=== PATIENT | male | born 1995 | race Caucasian/White ===

== ENCOUNTER 2016-09-19 18:02 | Emergency (ER) | payer MEDICAID, OTHER ==
[2016-09-19] MEDS ORDERED: ONDANSETRON 4 MG TAB.RAPDIS PO ONE (18:35)
--- NOTE | 2016-09-19 18:35 | ER Document Report ---
ED Medical Screen (RME) - General Stated Complaint: POSSIBLE SEIZURE/VOMITING Mode of Arrival: Wheelchair Information source: Patient Notes: Patient reports having a seizure around 3:30 today. Patient does have a history of previous seizure when he was 5 years old. Patient does not take any antiepileptic medications. Patient complains of nausea and vomiting. Seizure was witnessed by family member. Patient bit his tongue. hx: Seizures I have greeted and performed a rapid initial assessment of this patient. A comprehensive ED assessment and evaluation of the patient, analysis of test results and completion of the medical decision making process will be conducted by additional ED providers. TRAVEL OUTSIDE OF THE [place] IN LAST 30 DAYS: No - Related Data Allergies/Adverse Reactions: aripiprazole [From [employer]] Allergy (Intermediate, Verified 09/19/16 18:31) tounge welling, choking Past Medical History - Past Medical History Cardiac Medical History: Denies: Hx Coronary Artery Disease, Hx Heart Attack, Hx Hypertension Pulmonary Medical History: Reports: Hx Bronchitis Denies: Hx COPD, Hx Pneumonia Neurological Medical History: Reports: Hx Seizures. Denies: Hx Cerebrovascular Accident GI Medical History: Reports: Hx Gastroesophageal Reflux Disease Musculoskeltal Medical History: Denies Hx Arthritis Psychiatric Medical History: Reports: Hx Attention Deficit Hyperactivity Disorder, Hx Bipolar Disorder Past Surgical History: Reports: Hx Myringotomy, Hx Tonsillectomy - Immunizations Immunizations up to date: Yes Hx Diphtheria, Pertussis, Tetanus Vaccination: Yes Physical Exam - Vital signs Vitals: Temp Pulse Resp BP Pulse Ox 99.6 F 116 H 17 132/85 H 83 L 09/19/16 18:06 09/19/16 18:06 09/19/16 18:06 09/19/16 18:06 09/19/16 18:06 Interpretation: No: Hypoxic - Neurological [place] Coma Scale Eye Opening: Spontaneous [place] Coma Scale Verbal: Oriented Doc Coma Scale Motor: Obeys Commands [place] Coma Scale Total: 15 Course - Vital Signs Vital signs: Temp Pulse Resp BP Pulse Ox 99.6 F 116 H 17 132/85 H 83 L 09/19/16 18:06 09/19/16 18:06 09/19/16 18:06 09/19/16 18:06 09/19/16 18:06
[2016-09-19 19:14] LABS: HEMOGLOBIN 16.7 g/dL (13.5-17.0); HGB HCT DIFFERENCE 3.1; MEAN CORPUSCULAR HEMOGLOBIN 29.9 pg (27.0-33.4); MEAN CORPUSCULAR HGB CONC 35.4 g/dL (32.0-36.0); MEAN CORPUSCULAR VOLUME 84 fl (80-97); RED BLOOD COUNT 5.57 10^6/uL (4.35-5.55); RED CELL DISTRIBUTION WIDTH 12.9 % (11.5-14.0); WHITE BLOOD COUNT 22.3 10^3/uL (4.0-10.5)
[2016-09-19 19:37] LABS: ALANINE AMINOTRANSFERASE 33 U/L (21-72); ALBUMIN 4.9 g/dL (3.5-5.0); ALKALINE PHOSPHATASE 88 U/L (38-126); ANION GAP 14 (5-19); ASPARTATE AMINO TRANSFERASE 29 U/L (17-59); BILIRUBIN,TOTAL 0.9 mg/dL (0.2-1.3); BLOOD UREA NITROGEN 11 mg/dL (7-20); CALCIUM 9.6 mg/dL (8.4-10.2); CARBON DIOXIDE 22 mmol/L (22-30); CHLORIDE 102 mmol/L (98-107); CREATININE RESULT 0.94 mg/dL (0.52-1.25); GLUCOSE 81 mg/dL (75-110); LIPASE 62.2 U/L (23-300); POTASSIUM 3.8 mmol/L (3.6-5.0); SODIUM 138.3 mmol/L (137-145); TOTAL PROTEIN 7.3 g/dL (6.3-8.2)
[2016-09-19] MEDS ORDERED: ACETAMINOPHEN 325 MG TABLET PO ONE (19:38)
[2016-09-19 19:42] LABS: AMORPHOUS SEDIMENT,URINE TRACE /HPF; APPEARANCE,URINE CLOUDY; BILIRUBIN,URINE NEGATIVE (NEGATIVE); GLUCOSE, URINE NEGATIVE (NEGATIVE); KETONES,URINE 20 mg/dL (NEGATIVE); LEUKOCYTE ESTERASE,URINE NEGATIVE (NEGATIVE); NITRITE,URINE NEGATIVE (NEGATIVE); PROTEIN,URINE 30 mg/dL (NEGATIVE); URINE SPECIFIC GRAVITY 1.012; UROBILINOGEN,URINE NEGATIVE mg/dL (<2.0)
[2016-09-19 19:43] LABS: BASOPHILS % (MANUAL) 0 % (0-2); EOSINOPHILS % (MANUAL) 0 % (0-6); LYMPHOCYTES % (MANUAL) 8 % (13-45); TOTAL CELLS COUNTED 100
[2016-09-19 19:45] LABS: TOXIC GRANULATION SLIGHT
[2016-09-19 19:53] LABS: URINE BARBITURATES SCREEN NEGATIVE; URINE METHADONE SCREEN NEGATIVE; URINE OPIATES LOW NEGATIVE; URINE PHENCYCLIDINE SCREEN NEGATIVE
--- NOTE | 2016-09-19 23:36 | EKG REPORT ---
SEVERITY:- BORDERLINE ECG - SINUS TACHYCARDIA PROBABLE LEFT ATRIAL ABNORMALITY : Confirmed by: Lissa Marie MD 19-Sep-2016 23:35:23
[2016-09-19] MEDS ORDERED: LEVETIRACETAM 1500 MG/NACL-ISO 100 ML IV ONE (23:39)
--- NOTE | 2016-09-19 23:42 | ER Document Report ---
ED General - General Chief Complaint: Probable Seizure Stated Complaint: POSSIBLE SEIZURE/VOMITING Mode of Arrival: Wheelchair Notes: Patient is a 20-year-old male with past medical history in the remote past of seizures who presents after having a witnessed tonic-clonic seizure at home. The grandfather states that he found the patient lying on the floor in his bedroom with complete body convulsions and being unresponsive. States the episode lasted for approximate 45 seconds and then did resolve with a postictal period. The patient has not had a similar event apparently almost 14 years. He is not currently on any antiepileptic medications. He is not have a neurologist nor primary care doctor. At time of my assessment he denies any complaints he feels at his baseline. He and his grandfather state that he has had multiple, increasingly frequent episodes in which she is finding himself laying on the ground and his bedroom and is uncertain of how he got there. He also notices that there are some things damaged and the room and has been concerned these been having recurrent seizures. He denies any fever, weakness, numbness, headache, or altered mental status. Nothing triggered today's episode. It did resolve spontaneously. TRAVEL OUTSIDE OF THE [place] IN LAST 30 DAYS: No - Related Data Allergies/Adverse Reactions: aripiprazole [From [employer]] Allergy (Intermediate, Verified 09/19/16 18:31) toamber mccarty Past Medical History - General Information source: Patient - Social History Smoking Status: Never Smoker Chew tobacco use (# tins/day): No Frequency of alcohol use: None Drug Abuse: None Lives with: Family Family History: Reviewed & Not Pertinent Patient has suicidal ideation: No Patient has homicidal ideation: No - Past Medical History Cardiac Medical History: Denies: Hx Coronary Artery Disease, Hx Heart Attack, Hx Hypertension Pulmonary Medical History: Reports: Hx Bronchitis Denies: Hx COPD, Hx Pneumonia Neurological Medical History: Reports: Hx Seizures. Denies: Hx Cerebrovascular Accident Renal/ Medical History: Denies: Hx Peritoneal Dialysis GI Medical History: Reports: Hx Gastroesophageal Reflux Disease Musculoskeltal Medical History: Denies Hx Arthritis Psychiatric Medical History: Reports: Hx Attention Deficit Hyperactivity Disorder, Hx Bipolar Disorder Past Surgical History: Reports: Hx Myringotomy, Hx Tonsillectomy - Immunizations Immunizations up to date: Yes Hx Diphtheria, Pertussis, Tetanus Vaccination: Yes Review of Systems - Review of Systems Notes: Constitutional: Negative for fever. HENT: Negative for sore throat. Eyes: Negative for visual changes. Cardiovascular: Negative for chest pain. Respiratory: Negative for shortness of breath. Gastrointestinal: Negative for abdominal pain, vomiting or diarrhea. Genitourinary: Negative for dysuria. Musculoskeletal: Negative for back pain. Skin: Negative for rash. Neurological: Negative for headaches, weakness or numbness. 10 point ROS negative except as marked above and in HPI. Physical Exam - Vital signs Vitals: Temp Pulse Resp BP Pulse Ox 99.6 F 116 H 17 132/85 H 98 09/19/16 18:06 09/19/16 18:06 09/19/16 18:06 09/19/16 18:06 09/19/16 18:06 Interpretation: Tachycardic Notes: PHYSICAL EXAMINATION: GENERAL: Well-appearing, well-nourished and in no acute distress. HEAD: Atraumatic, normocephalic. EYES: Pupils equal round and reactive to light, extraocular movements intact, sclera anicteric, conjunctiva are normal. ENT: nares patent, oropharynx clear without exudates. Moist mucous membranes. NECK: Normal range of motion, supple without lymphadenopathy LUNGS: Breath sounds clear to auscultation bilaterally and equal. No wheezes rales or rhonchi. HEART: Regular rate and rhythm without murmurs ABDOMEN: Soft, nontender, normoactive bowel sounds. No guarding, no rebound. No masses appreciated. EXTREMITIES: Normal range of motion, no pitting or edema. No cyanosis. NEUROLOGICAL: Face symmetric. Tongue protrudes midline. Extraocular motions intact. Pupils are 2 mm and equally reactive. Normal speech, normal gait. 5 out of 5 strength in both the distal and proximal upper and lower extremities bilaterally. Sensation is grossly intact throughout. Finger to nose testing normal. Pronator drift normal. PSYCH: Normal mood, normal affect. SKIN: Warm, Dry, normal turgor, no rashes or lesions noted. Course - Re-evaluation Re-evalutation: 09/19/16 23:39 Presentation of well-appearing patient after having a seizure. Patient has a known history of seizures and it appears that he has been having recurrent seizures over the last several months but has not told any family. He has not on any antiepileptic at this time. No obvious trigger for today's episode. The patient has returned to baseline without intervention. No focal neurologic deficits. No infectious symptoms, vital sign abnormalities, or evidence of trauma. No indication for laboratories or imaging based on reassuring evaluation and known history of seizures. However, unfortunately in triage a broad panel of laboratories was inappropriately ordered. This did demonstrate a leukocytosis. I suspect is secondary to the seizure as well as patient's episode of vomiting. He has no additional infectious symptoms to suggest a meningitis or encephalitis. He has no nuchal rigidity on exam. He has not had any cough, abdominal pain, shortness of breath or fever at home. Patient will be started on Keppra and has been loaded here in the emergency department. I' ve instructed him and his guardian about the importance of close outpatient follow-up with neurology.At this time will discharge with return precautions and follow-up recommendations. Verbal discharge instructions given a the bedside and opportunity for questions given. Medication warnings reviewed. Patient is in agreement with this plan and has verbalized understanding of return precautions and the need for primary care follow-up in the next 24-72 hours. - Vital Signs Vital signs: Temp Pulse Resp BP Pulse Ox 98.4 F 96 18 116/53 L 97 09/20/16 01:30 09/20/16 01:30 09/20/16 01:30 09/20/16 01:30 09/20/16 01:30 - Laboratory Result Diagrams: 09/19/16 18:55 09/19/16 18:55 Laboratory results interpreted by me: 09/19/16 09/19/16 18:55 18:55 WBC 22.3 H RBC 5.57 H Seg Neuts % (Manual) 88 H Lymphocytes % (Manual) 8 L Abs Neuts (Manual) 19.6 H Urine Protein 30 H Urine Ketones 20 H Urine Ascorbic Acid 20 H - EKG Interpretation by Me Additional EKG results interpreted by me: 09/19/16 23:41 Sinus tachycardia. Rate 101. No ST elevations or depressions. QTC is 436. Discharge - Discharge Clinical Impression: Seizure Condition: Good Disposition: HOME, SELF-CARE Additional Instructions: Today you had a seizure. It is very important that you do not engage in any activities that could result in severe injury should you have a seizure. Specifically, do not drive a vehicle, go into a body of water, take a bath, climb ladders, or operate any heavy machinery until you have been cleared by your neurologist. Please return to the ED immediately if you have multiple seizures close together, develop a severe headache, weakness, numbness, difficulty speaking, have a seizure in which you do not return to normal within 1 hour of the seizure, or have any other symptoms that are concerning to you. Take any medication that was prescribed exactly as directed. Prescriptions: Levetiracetam [Keppra 500 mg Tablet] 500 mg PO Q12 #60 tablet Referrals: MEGA ENGEL MD [ACTIVE STAFF] - 09/22/16
[2016-09-20] MEDS ORDERED: LEVETIRACETAM INJ/PF 500 MG/5 ML SDV IV ONE (00:32)
[2016-09-20 01:31] VITALS: BP 116/53
== END 2016-09-20 01:31 | disposition home or self-care (01) ==
LOC: ER 18:02
DX: R56.9 Unspecified convulsions (principal); D72.829 Elevated white blood cell count, unspecified; Z88.8 Allergy status to other drugs, medicaments and biological substances; R00.0 Tachycardia, unspecified
CPT/HCPCS: 93005; 99284; 96374; 36415; 83690; 85025; 80053; 81001; 80307; 93010; S0119; J1953

== ENCOUNTER 2017-01-02 10:30 | Emergency (ER) | payer SELFPAY ==
--- NOTE | 2017-01-02 11:12 | ER Document Report ---
ED Medical Screen (RME) - General Chief Complaint: Probable Seizure Stated Complaint: HEAD PAIN/POSSIBLE SEIZURE Time Seen by Provider: 01/02/17 11:06 Notes: -year-old male patient with seizure disorder. His last seizure was in September of this year and seen in the emergency room. He received prescriptions for Keppra and took that until he ran out. He does not have insurance, he lives with her grandfather and they are on limited means and were unable to be seen by neurology or any other provider due to financial reasons. He had a seizure this morning about 8:45 AM, was banging his head and nose with some bleeding from the nose. At this time he has a little bit of a headache. I will order a healthcare social worker consult during this visit. I have greeted and performed a rapid initial assessment of this patient. A comprehensive ED assessment and evaluation of the patient, analysis of test results and completion of the medical decision making process will be conducted by additional ED providers. TRAVEL OUTSIDE OF THE [place] IN LAST 30 DAYS: No - Related Data Allergies/Adverse Reactions: aripiprazole [From [employer]] Allergy (Intermediate, Verified 01/02/17 10:34) tounge welling, choking cetirizine [From Zyrtec] Allergy (Verified 01/02/17 10:34) Past Medical History - Past Medical History Cardiac Medical History: Denies: Hx Coronary Artery Disease, Hx Heart Attack, Hx Hypertension Pulmonary Medical History: Reports: Hx Bronchitis Denies: Hx COPD, Hx Pneumonia Neurological Medical History: Reports: Hx Seizures. Denies: Hx Cerebrovascular Accident Renal/ Medical History: Denies: Hx Peritoneal Dialysis GI Medical History: Reports: Hx Gastroesophageal Reflux Disease Musculoskeltal Medical History: Denies Hx Arthritis Psychiatric Medical History: Reports: Hx Attention Deficit Hyperactivity Disorder, Hx Bipolar Disorder Past Surgical History: Reports: Hx Myringotomy, Hx Tonsillectomy - Immunizations Immunizations up to date: Yes Hx Diphtheria, Pertussis, Tetanus Vaccination: Yes Physical Exam - Vital signs Vitals: Temp Pulse Resp BP Pulse Ox 97.4 F 86 20 122/85 97 01/02/17 10:34 01/02/17 10:34 01/02/17 10:34 01/02/17 10:34 01/02/17 10:34 Course - Vital Signs Vital signs: Temp Pulse Resp BP Pulse Ox 97.4 F 86 20 122/85 97 01/02/17 10:34 01/02/17 10:34 01/02/17 10:34 01/02/17 10:34 01/02/17 10:34
[2017-01-02] MEDS ORDERED: LEVETIRACETAM 500 MG TABLET PO ONE (11:13)
[2017-01-02 13:10] LABS: ANION GAP 14 (5-19); BLOOD UREA NITROGEN 9 mg/dL (7-20); CARBON DIOXIDE 26 mmol/L (22-30); CHLORIDE 103 mmol/L (98-107); CREATININE RESULT 0.73 mg/dL (0.52-1.25); GLUCOSE 88 mg/dL (75-110); MAGNESIUM 2.6 mg/dL (1.6-2.3); POTASSIUM 4.3 mmol/L (3.6-5.0); SODIUM 143.2 mmol/L (137-145)
--- NOTE | 2017-01-02 13:58 | ER Document Report ---
ED General - General Chief Complaint: Probable Seizure Stated Complaint: HEAD PAIN/POSSIBLE SEIZURE Time Seen by Provider: 01/02/17 11:06 TRAVEL OUTSIDE OF THE [place] IN LAST 30 DAYS: No - HPI Patient complains to provider of: Seizure Notes: Patient coming in for evaluation of seizure. Patient was diagnosed with seizure in the child for a long time without having seizures and last seizure was in September. Patient at time received Keppra for seizure medication hours and not been able to follow-up with the primary care physician or see a neurologist. Patient upon my evaluation is awake alert no signs of obvious distress. Patient does complain of slight headache - Related Data Allergies/Adverse Reactions: aripiprazole [From [employer]] Allergy (Intermediate, Verified 01/02/17 10:34) tounge welling, choking cetirizine [From Zyrtec] Allergy (Verified 01/02/17 10:34) Past Medical History - Social History Smoking Status: Never Smoker Chew tobacco use (# tins/day): No Frequency of alcohol use: None Drug Abuse: None Family History: Reviewed & Not Pertinent Patient has suicidal ideation: No Patient has homicidal ideation: No - Past Medical History Cardiac Medical History: Denies: Hx Coronary Artery Disease, Hx Heart Attack, Hx Hypertension Pulmonary Medical History: Reports: Hx Bronchitis Denies: Hx COPD, Hx Pneumonia Neurological Medical History: Reports: Hx Seizures. Denies: Hx Cerebrovascular Accident Renal/ Medical History: Denies: Hx Peritoneal Dialysis GI Medical History: Reports: Hx Gastroesophageal Reflux Disease Musculoskeltal Medical History: Denies Hx Arthritis Psychiatric Medical History: Reports: Hx Attention Deficit Hyperactivity Disorder, Hx Bipolar Disorder Past Surgical History: Reports: Hx Myringotomy, Hx Tonsillectomy - Immunizations Immunizations up to date: Yes Hx Diphtheria, Pertussis, Tetanus Vaccination: Yes Review of Systems - Review of Systems Constitutional: No symptoms reported EENT: No symptoms reported Cardiovascular: No symptoms reported Respiratory: No symptoms reported Gastrointestinal: No symptoms reported Genitourinary: No symptoms reported Male Genitourinary: No symptoms reported Musculoskeletal: No symptoms reported Skin: No symptoms reported Hematologic/Lymphatic: No symptoms reported Neurological/Psychological: Seizure -: Yes All other systems reviewed and negative Physical Exam - Vital signs Vitals: Temp Pulse Resp BP Pulse Ox 97.4 F 86 20 122/85 97 01/02/17 10:34 01/02/17 10:34 01/02/17 10:34 01/02/17 10:34 01/02/17 10:34 Interpretation: Normal - General General appearance: Appears well, Alert - HEENT Head: Normocephalic, Atraumatic Eyes: Normal Pupils: PERRL - Respiratory Respiratory status: No respiratory distress Chest status: Nontender Breath sounds: Normal Chest palpation: Normal - Cardiovascular Rhythm: Regular Heart sounds: Normal auscultation Murmur: No - Abdominal Inspection: Normal Distension: No distension Bowel sounds: Normal Tenderness: Nontender Organomegaly: No organomegaly - Back Back: Normal, Nontender - Extremities General upper extremity: Normal inspection, Nontender, Normal color, Normal ROM , Normal temperature General lower extremity: Normal inspection, Nontender, Normal color, Normal ROM , Normal temperature, Normal weight bearing. No: Efren's sign - Neurological Neuro grossly intact: Yes Cognition: Normal Orientation: AAOx4 Doc Coma Scale Eye Opening: Spontaneous Doc Coma Scale Verbal: Oriented Doc Coma Scale Motor: Obeys Commands [place] Coma Scale Total: 15 Speech: Normal Motor strength normal: LUE, RUE, LLE, RLE Sensory: Normal - Psychological Associated symptoms: Normal affect, Normal mood - Skin Skin Temperature: Warm Skin Moisture: Dry Skin Color: Normal Course - Re-evaluation Re-evalutation: And neurologically intact. Were able to set up an appointment for the patient to be seen in outpatient clinic. Patient will be given Keppra here. Patient was discharged home with follow-up with his clinic appointment. - Vital Signs Vital signs: Temp Pulse Resp BP Pulse Ox 98.0 F 66 20 110/61 98 01/02/17 14:19 01/02/17 14:19 01/02/17 14:19 01/02/17 14:19 01/02/17 14:19 - Laboratory Result Diagrams: 01/02/17 12:33 Laboratory results interpreted by me: 01/02/17 12:33 Magnesium 2.6 H Discharge - Discharge Clinical Impression: Seizure Condition: Good Disposition: HOME, SELF-CARE Instructions: Seizure, Known Epileptic ([facility]) Additional Instructions: Please take the medication as prescribed. We have made your appointment with the [facility] for the at 5:00. Please make sure that you follow-up at this time. I will to confirm your appointment on Thursday Prescriptions: Levetiracetam [Keppra 500 mg Tablet] 500 mg PO Q12 #60 tablet Referrals: PROSTHETICS ASSISTANT, DEPARTMENT OF [Other] - Follow up as needed (Call to arrange a time to apply for medicaid) [facility] [Provider Group] - 01/08/17 5:00 pm (Please bring all discharge instructions from the hospital and prescriptions.)
[2017-01-02 14:27] VITALS: BP 110/61
== END 2017-01-02 14:26 | disposition home or self-care (01) ==
LOC: ER 10:30
DX: R56.9 Unspecified convulsions (principal); R51 Headache
CPT/HCPCS: 36415; 80048; 83735; 99284

== ENCOUNTER 2017-07-06 01:04 | Emergency (ER) | payer SELFPAY ==
[2017-07-06 01:14] VITALS: BP 122/81
--- NOTE | 2017-07-06 02:17 | ER Document Report ---
ED General - General Chief Complaint: Probable Seizure Stated Complaint: SEIZURES Time Seen by Provider: 07/06/17 02:15 Notes: Patient is a 21-year-old male with a past medical history of epilepsy, taking Keppra 500 mg twice daily who presents after having a seizure. Patient did take his Keppra today but notes that he had several missed doses over the past 3 -4 days. He apparently had a generalized tonic-clonic seizure lasting approximately 1-2 minutes with spontaneous resolution. He did have a postictal phase. He did hit his head at the base board during the seizure and sustained a small traumatic ecchymosis over the area but denies any pain to the area. Since that time he denies any focal weakness, numbness, altered mental status or vomiting. He does not take any form of anticoagulation. He notes that he has had seizures repeatedly in the past when he has missed medications. TRAVEL OUTSIDE OF THE [place] IN LAST 30 DAYS: No - Related Data Allergies/Adverse Reactions: aripiprazole [From [employer]] Allergy (Intermediate, Verified 07/06/17 01:14) tounge welling, choking cetirizine [From Zyrtec] Allergy (Verified 07/06/17 01:14) Home Medications: Current Home Medications Levetiracetam [Keppra 500 mg Tablet] 1 tab PO BID 07/06/17 [History] Past Medical History - General Information source: Patient - Social History Smoking Status: Never Smoker Frequency of alcohol use: None Drug Abuse: None Lives with: Family Family History: Reviewed & Not Pertinent - Past Medical History Cardiac Medical History: Denies: Hx Coronary Artery Disease, Hx Heart Attack, Hx Hypertension Pulmonary Medical History: Reports: Hx Bronchitis Denies: Hx COPD, Hx Pneumonia Neurological Medical History: Reports: Hx Seizures. Denies: Hx Cerebrovascular Accident Renal/ Medical History: Denies: Hx Peritoneal Dialysis GI Medical History: Reports: Hx Gastroesophageal Reflux Disease Musculoskeltal Medical History: Denies Hx Arthritis Psychiatric Medical History: Reports: Hx Attention Deficit Hyperactivity Disorder, Hx Bipolar Disorder Past Surgical History: Reports: Hx Myringotomy, Hx Tonsillectomy - Immunizations Immunizations up to date: Yes Hx Diphtheria, Pertussis, Tetanus Vaccination: Yes Review of Systems - Review of Systems Notes: Constitutional: Negative for fever. HENT: Negative for sore throat. Eyes: Negative for visual changes. Cardiovascular: Negative for chest pain. Respiratory: Negative for shortness of breath. Gastrointestinal: Negative for abdominal pain, vomiting or diarrhea. Genitourinary: Negative for dysuria. Musculoskeletal: Negative for back pain. Skin: Negative for rash. Neurological: Negative for headaches, weakness or numbness. 10 point ROS negative except as marked above and in HPI. Physical Exam - Vital signs Vitals: Temp Pulse Resp BP Pulse Ox 97.8 F 110 H 16 122/81 97 07/06/17 01:13 07/06/17 01:13 07/06/17 01:13 07/06/17 01:13 07/06/17 01:13 Interpretation: Tachycardic Notes: PHYSICAL EXAMINATION: GENERAL: Well-appearing, well-nourished and in no acute distress. HEAD: Small bruise above the left middle eyebrow otherwise no evidence of trauma. EYES: Pupils equal round and reactive to light, extraocular movements intact, sclera anicteric, conjunctiva are normal. ENT: nares patent, oropharynx clear without exudates. Moist mucous membranes. NECK: Normal range of motion, supple without lymphadenopathy LUNGS: Breath sounds clear to auscultation bilaterally and equal. No wheezes rales or rhonchi. HEART: Regular rate and rhythm without murmurs ABDOMEN: Soft, nontender, normoactive bowel sounds. No guarding, no rebound. No masses appreciated. EXTREMITIES: Normal range of motion, no pitting or edema. No cyanosis. NEUROLOGICAL: Face symmetric. Tongue protrudes midline. Extraocular motions intact. Pupils are 2 mm and equally reactive. Normal speech, normal gait. 5 out of 5 strength in both the distal and proximal upper and lower extremities bilaterally. Sensation is grossly intact throughout. Finger to nose testing normal. Pronator drift normal. PSYCH: Normal mood, normal affect. SKIN: Warm, Dry, normal turgor, no rashes or lesions noted. Course - Re-evaluation Re-evalutation: 07/06/17 02:15 Presentation of well-appearing patient after having a seizure. Patient has a known history of seizures. Patient had several missed doses of his Keppra, likely the trigger for today's seizure the patient has returned to baseline without intervention. No focal neurologic deficits. No infectious symptoms, vital sign abnormalities, or evidence of trauma. No indication for laboratories or imaging based on reassuring evaluation and known history of seizures. The patient will be discharged home with recommendations for close follow-up with primary care as well as their neurologist. Return precautions have been reviewed and patient has verbalized understanding. - Vital Signs Vital signs: Temp Pulse Resp BP Pulse Ox 97.8 F 110 H 16 122/81 97 07/06/17 01:13 07/06/17 01:13 07/06/17 01:13 07/06/17 01:13 07/06/17 01:13 Discharge - Discharge Clinical Impression: Seizure Condition: Good Disposition: HOME, SELF-CARE Additional Instructions: Today you had a seizure. It is very important that you do not engage in any activities that could result in severe injury should you have a seizure. Specifically, do not drive a vehicle, go into a body of water, take a bath, climb ladders, or operate any heavy machinery until you have been cleared by your neurologist. Please return to the ED immediately if you have multiple seizures close together, develop a severe headache, weakness, numbness, difficulty speaking, have a seizure in which you do not return to normal within 1 hour of the seizure, or have any other symptoms that are concerning to you.
== END 2017-07-06 02:30 | disposition home or self-care (01) ==
LOC: ER 01:04
DX: G40.909 Epilepsy, unspecified, not intractable, without status epilepticus (principal); T42.6X6A Underdosing of other antiepileptic and sedative-hypnotic drugs, initial encounter; Z91.14 Patient's other noncompliance with medication regimen; Z79.899 Other long term (current) drug therapy; S00.12XA Contusion of left eyelid and periocular area, initial encounter; W22.09XA Striking against other stationary object, initial encounter; Y93.89 Activity, other specified
CPT/HCPCS: 99283

== ENCOUNTER → 2020-01-02 | Outpatient (CLI) | payer BC ==
[2020-01-02 15:17] LABS: HEMATOCRIT 44.6 % (37.9-51.0); HEMOGLOBIN 16.1 g/dL (13.5-17.0); MEAN CORPUSCULAR HEMOGLOBIN 30.9 pg (27.0-33.4); MEAN CORPUSCULAR VOLUME 86 fl (80-97); PLATELET COUNT 204 10^3/uL (150-450); RED BLOOD COUNT 5.21 10^6/uL (4.35-5.55); RED CELL DISTRIBUTION WIDTH 13.9 % (11.5-14.0); WHITE BLOOD COUNT 6.2 10^3/uL (4.0-10.5)
[2020-01-02 15:38] LABS: ALBUMIN 4.9 g/dL (3.5-5.0); ALKALINE PHOSPHATASE 56 U/L (38-126); ANION GAP 8 (5-19); ASPARTATE AMINO TRANSFERASE 28 U/L (17-59); BILIRUBIN,TOTAL 0.9 mg/dL (0.2-1.3); BLOOD UREA NITROGEN 11 mg/dL (7-20); CALCIUM 9.6 mg/dL (8.4-10.2); CARBON DIOXIDE 30 mmol/L (22-30); CHLORIDE 103 mmol/L (98-107); GLUCOSE 75 mg/dL (75-110); POTASSIUM 4.9 mmol/L (3.6-5.0); TOTAL PROTEIN 7.4 g/dL (6.3-8.2)
[2020-01-02 15:53] LABS: FREE T4 (FREE THYROXINE) 1.05 ng/dL (0.78-2.19)
[2020-01-02 16:07] LABS: THYROID STIMULATING HORMONE 0.63 uIU/mL (0.47-4.68)
== END ==
LOC: OD 14:28
PROVIDERS: ATTEND Internal Medicine Gastroenterology
DX: K59.01 Slow transit constipation (principal); R10.9 Unspecified abdominal pain
CPT/HCPCS: 36415; 80053; 84439; 84443; 85027